=== PATIENT | female | born 1940 | race Caucasian/White ===

== ENCOUNTER → 2017-09-01 09:57 | Outpatient (CLI) | payer MEDICARE, SELFPAY ==
[2017-09-01 12:36] LABS: ALB/GLOB Ratio 1.1 RATIO (0.9-2.4); AST(SGOT) 17 U/L (15-37); Alanine Aminotransfer ALT/SGPT 24 U/L (13-56); Alkaline Phosphatase 119 U/L (45-117); Anion Gap 8 (5-15); BUN 15 mg/dL (7-18); Calcium,Total 9.3 mg/dL (8.5-10.1); Chloride 108 mmol/L (98-107); Cholesterol 199 mg/dL (200); Creatinine, Serum 0.65 mg/dL (0.55-1.02); EST Glomerular Filtration Rate 93 mL/min (>60); Est Glom Filt Rate - Afr Amer 113 mL/min (>60); Globulin 3.6 g/dL (2.2-4.2); Glucose 89 mg/dL (74-106); High Density Lipoprotein 81 mg/dL; Potassium 3.7 mmol/L (3.5-5.1); Protein, Total 7.6 g/dL (6.4-8.2); Sodium Level 143 mmol/L (136-145); Triglycerides 130 mg/dL; Very Low Density Lipoprotein 26 mg/dL (5-40)
== END ==
PROVIDERS: Family Provider Family Medicine; PCP Family Medicine; Visit Provider Family Medicine
DX: E78.5 Hyperlipidemia, unspecified (principal)
CPT/HCPCS: 36415; 80053; 80061

== ENCOUNTER → 2018-03-30 13:03 | Outpatient (CLI) | payer MEDICARE, SELFPAY ==
--- NOTE | 2018-03-30 13:09 | RAD_ITS ---
STUDY: X-RAY - RIGHT KNEE REASON FOR EXAM: Female, 77 years old. Right knee pain. TECHNIQUE: 4 view(s) of the knee. COMPARISON: 4 views of the right knee January 28, 2017. FINDINGS: Mild periarticular spurring of the medial femoral condyle there is medial articular spurring of the tibial plateau as well as spurring of the tibial spines. Normal visualized proximal fibula. There is mild paratracheal or spurring at the base of the patella, as well as cortical spurring at the patellar insertion of the quadriceps tendon. There is no demonstrated destructive osseous lesion or acute fracture. There is degenerative arthrosis of the medial femorotibial compartment with moderately severe joint space narrowing. There is Degenerative narrowing of the lateral femorotibial compartment, as well as chondrocalcinosis. Normal patellofemoral articulation. There is a soft tissue prominence in the suprapatellar region suggesting a small volume joint effusion. The soft tissue structures are unremarkable. RAD/Knee 4 or More Views IMPRESSION: Tricompartmental degenerative arthrosis of the knee, including chondrocalcinosis of the lateral femorotibial compartment and small joint effusion. These are findings that can be associated with deposition arthritides, such as calcium pyrophosphate deposition disease (CPPD). Narrowing in the medial femorotibial compartment has worsened, and the small joint effusion is new. Electronically Signed: Quintin Wilson MD at 15:43 EST , Service support ,
--- OUTSIDE RECORDS SUMMARY | 2018-05-23 20:40 | XMS RPT_ITS ---
:1940 Author Organization [facility] Care Team Providers Name Role Phone Damian Cleveland Attending Unavailable Megha, Damian Primary Care Unavailable Orin Luciano Attending Unavailable Megha, Damian Referring Unavailable Damian Cleveland Primary Care Unavailable Nadege, Olvin Attending Unavailable Cleveland, Damian Referring Unavailable Nadege, Olvin Attending Unavailable Nadege, Olvin Referring Unavailable Megha, Damian Primary Care Unavailable PROBLEMS PROBLEMS DATE TYPE CONDITION / CODE ATTENDING STATUS SOURCE 03/30/2018 Unknown M25.561 - Pain in Olvin Light Active [place] right knee / Community M25.561(ICD-10) Hospital Repository 01/01/2018 Unknown M17.11 - [place], Active [place] Unilateral [facility] osteoarthritis, Repository right knee / M17.11(ICD-10) PROCEDURES PROCEDURES No Procedure Records FoundRESULTS RESULTS ORTHOPEDIC VISIT Observed: 03/31/2018 Status: F Source: N[facility]DA REPORT 12:44 PM [facility] REPOSITORY [facility] Orthopaedics AND Sports Medicine [address] [place] [address] OFFICE VISIT Date of Service: 03/30/18 MR#: [id number] Acct: [id number] Name: KI DOW Rep #: [id number] : 1940 Provider: CABRERA Light Age/Sex: 77/F Location: [facility] [place].[facility] Status: Signed Intake Intake Visit Reasons: RIGHT KNEE Is patient in pain?: Yes Allergies No Known Allergies Allergy (Verified 03/30/18 13:04) Medications simvastatin 20 mg tablet 20 mg PO QHS 01/01/18 [History Confirmed 01/01/18] HPI RIGHT KNEE: Details: KI DOW is a 77 year old F here today for continued right knee pain. Patient notes that she has pain over her medial knee. She had an injection on 01/01/18 which was helpful for her evening pain. She denies any frequent clicking or popping. Patient has increased pain with ambulation. Her last xrays were 01/2017. She denies any recent PT or bracing. Denies numbness, tingling or other associated symptoms. ROS Const Reports system reviewed and no additional complaints, except as docu Eyes Reports system reviewed and no additional complaints, except as docu ENT Reports system reviewed and no additional complaints, except as docu Card Reports system reviewed and no additional complaints, except as docu Resp Reports system reviewed and no additional complaints, except as docu GI Reports system reviewed and no additional complaints, except as docu Reports system reviewed and no additional complaints, except as docu Musc Reports joint pain Skin/Breast Reports system reviewed and no additional complaints, except as docu Neuro Yes system reviewed and no additional complaints, except as docu Psych Reports system reviewed and no additional complaints, except as docu Endo Reports system reviewed and no additional complaints, except as docu Ortho Exam Right Knee Swelling: No Knee ROM: Yes ROM-Extension -20 to 0, Yes ROM-Flexion 0-140 Examination: Yes Med jt line tenderness, Yes Pain with flexion, Yes Crepitus, No Pain with extention, No TTP inf pole patella Quad Atrophy: No Stability: NML: Valgus 30, NML: Varus 30 Popliteal Adenopathy: No Patella Grind: Yes Office Procedures Ortho Injections Injections Yes Knee Right Details: Obtained consent for injection. Under sterile conditions, injected the patients right knee with a 10cc cocktail of 8cc bupivacaine and 2cc kenalog. The patient tolerated the injection well without any noted complication. Patient should call our office if redness develops, pain worsens or if they have any concerns. Office Meds Kenalog Performing Provider: CABRERA Stock Administered by: CABRERA Stock on 03/30/18 14:44 Dose Route Admin Location Lot Number Expiration DateNDC Manager Of Regulatory Affairs 80 mg Intra-Articularright knee [id number] 03/28/19 9935-7317-19 [facility] Assessment AND Plan Problems 1. Arthritis of knee, right M17.11 Plan Obtained Xrays of patient's right knee. Personally reviewed Xrays. There is no obvious fracture, dislocation, or lucency noted. There is evident joint space narrowing on weightbearing films indicating medial compartment arthritis. See chart for further details. Today in office we discussed anatomy and physiology of the knee as well as pathophysiology of arthritis. We discussed she deftly has evidence of arthritis and likely has some degenerative tearing of the meniscus. We discussed treatment options today which include doing nothing, physical therapy, injection, or further imaging for possible arthroplasty. Patient really would like to proceed with trying to get gel injections approved through her insurance. We discussed that we do not participate in a by and fill program which is what her insurance will do. At this time she would like to go ahead with a another steroid injection for the nighttime pain and she is going to try and find an office to do By and bill to get her gel injections approved. Patient is to ice the knee tonight and can take an anti-inflammatory as needed. She is to notify us of any redness, increasing swelling or pain, or any other symptoms in the meantime. Orders Orders: Medications Discontinued: Kenalog (triamcinolone acetonide) Disco80 mg (2 mL) Intra- Articular ONCE 2 mL 0RFM17.11 ntinued Reason: Office Medication has bee NS n Documented as given Plan Detail Follow Up 3 Months Coding Level of Care Code Off vis,est,level 3 Diagnoses Arthritis of knee, right M17.11 Additional Codes director of supply chain.knee ([id number]) 03/31/18 1244 <Electronically signed by Olvin REES> Date Olvin REES Cosigner Signature: Date (if applicable) CC: KNEE 4 OR MORE Observed: 03/30/2018 Status: F Source: [place] VIEWS 1:05 PM [facility] REPOSITORY [facility] Imaging Services [address] [place] [address] Knee 4 or More Views MR#: [id number] Acct: [id number] Name: KI DOW Rep #: [id number] : 1940 F 77 From: Chadd Wilson MD PCP: Damian Cleveland MD Status: REG CLI Study: Knee 4 or More Views Date of Exam: 03/30/18 Exam# [id number] Ordering Dr: Olvin Light STUDY: X-RAY - RIGHT KNEE REASON FOR EXAM: Female, 77 years old. Right knee pain. TECHNIQUE: 4 view(s) of the knee. COMPARISON: 4 views of the right knee January 28, 2017. FINDINGS: Mild periarticular spurring of the medial femoral condyle there is medial articular spurring of the tibial plateau as well as spurring of the tibial spines. Normal visualized proximal fibula. There is mild paratracheal or spurring at the base of the patella, as well as cortical spurring at the patellar insertion of the quadriceps tendon. There is no demonstrated destructive osseous lesion or acute fracture. There is degenerative arthrosis of the medial femorotibial compartment with moderately severe joint space narrowing. There is Degenerative narrowing of the lateral femorotibial compartment, as well as chondrocalcinosis. Normal patellofemoral articulation. There is a soft tissue prominence in the suprapatellar region suggesting a small volume joint effusion. The soft tissue structures are unremarkable. RAD/Knee 4 or More Views IMPRESSION: Tricompartmental degenerative arthrosis of the knee, including chondrocalcinosis of the lateral femorotibial compartment and small joint effusion. These are findings that can be associated with deposition arthritides, such as calcium pyrophosphate deposition disease (CPPD). Narrowing in the medial femorotibial compartment has worsened, and the small joint effusion is new. Electronically Signed: Quintin Wilson MD at 15:43 EST , Service support , CC: CABRERA Light; Damian Cleveland MD Destination Specialist: Signed ORTHOPEDIC VISIT Observed: 01/12/2018 Status: F Source: NILDA REPORT 11:20 AM [facility] REPOSITORY [facility] Orthopaedics AND Sports Medicine [address] [place] [address] OFFICE VISIT Date of Service: 01/01/18 MR#: [id number] Acct: [id number] Name: KI DOW Rep #: [id number] : 1940 Provider: Orin Luciano DO Age/Sex: 77/F Location[place] [facility] [place] [place]: Signed Intake Intake Visit Reasons: RIGHT KNEE Is patient in pain?: Yes Allergies No Known Allergies Allergy (Unverified 01/01/18 14:57) Medications simvastatin 20 mg tablet 20 mg PO QHS 01/01/18 [History Confirmed 01/01/18] HPI RIGHT KNEE: Details: KI DOW is a 77 year old F here today for right knee pain. Patient complains of pain over her anterior knee. She has increased pain in the evening and her knee pain wakes her up throughout the night. Patient denies any popping or clicking. She has some swelling of her right knee. She had an injection was 01/28/17 which was helpful for about 10 months. Patient notes that she modifies her actvities and does not kneel on her knee. ROS Const Reports system reviewed and no additional complaints, except as docu Eyes Reports system reviewed and no additional complaints, except as docu ENT Reports system reviewed and no additional complaints, except as docu Card Reports system reviewed and no additional complaints, except as docu Resp Reports system reviewed and no additional complaints, except as docu GI Reports system reviewed and no additional complaints, except as docu Reports system reviewed and no additional complaints, except as docu Musc Reports joint pain, Reports joint swelling Skin/Breast Reports system reviewed and no additional complaints, except as docu Neuro Yes system reviewed and no additional complaints, except as docu Psych Reports system reviewed and no additional complaints, except as docu Endo Reports system reviewed and no additional complaints, except as docu Ortho Exam Right Knee Skin/Wound: Yes CDI Contralateral Normal: Yes Swelling: No Knee ROM: Yes ROM-Extension -20 to 0, Yes ROM-Flexion 0-140 Examination: Yes Med jt line tenderness, Yes Pain with flexion Office Procedures Ortho Injections Injections Yes Knee Right Details: Obtained consent for injection. Under sterile conditions, aspirated 7cc and injected the patients right knee with a 10cc cocktail of 8cc bupivacaine and 2cc kenalog. The patient tolerated the injection well without any noted complication. Patient should call our office if redness develops, pain worsens or if they have any concerns. Office Meds Kenalog Performing Provider: Orin Luciano DO Administered by: Orin Luciano DO on 01/01/18 15:20 Dose Route Admin Location Lot Number Expiration DateNDC Manager Of Regulatory Affairs 80 mg Intra-Articularright knee [id number] 03/28/19 7801-9184-10 [employer] Assessment AND Plan 1. Osteoarthritis of right knee, unspecified osteoarthritis type M17.11 Plan Explained that as long as the steroid injections are helpful we can continue them every 3-4 months. Follow up in [] or sooner if pain, swelling, numbness or associated symptoms, or concerns develop. All questions answered. Patient in agreement of plan. Orders Orders: Medications Discontinued: Kenalog (triamcinolone acetonide) Disco80 mg (8 mL) Intra- Articular ONCE NS Perry Vivas ntinued Reason: Office Medication has bee n Documented as given Coding Level of Care Code No Charge Diagnoses Osteoarthritis of right knee, unspecified osteoarthritis type M17.11 Osteoarthritis type: unspecified Additional Codes director of supply chain.knee ([id number]) 01/12/18 1120 <Electronically signed by Orin Luciano DO> Date Orin Luciano DO Cosigner Signature: Date (if applicable) CC: COMPREHENSIVE METABOLIC Collected: 09/01/2017 Status: F Source: NILDA [facility] 9:59 AM [facility] REPOSITORY TYPE CODE TESTS RESULT OUT OF RANGE REFERENCE UNITS LAB L501.0100 74-106 mg/dL Normal GLU 89 Result Comment: Please note revised GLUCOSE reference range effective 2017. LAB L501.1000 7-18 mg/dL Normal BUN 15 LAB L501.1100 0.55-1.02 mg/dL Normal CREAT,SERUM 0.65 Result Comment: The validity of the calculated GFR AND GFRAA in patients over 70 years has not been determined. Clinical correlation is essential. LAB L501.1110 >60 mL/min Normal EST GFR 93 Result Comment: Non- GFR Calc LAB L501.1115 >60 mL/min Normal EST GFR - AA 113 Result Comment: GFR Calc LAB L501.1300 10-20 RATIO High BUN/CRE 23.0 LAB L501.1500 6.4-8.2 g/dL T Normal PROT 7.6 LAB L501.1800 3.2-5.0 g/dL Normal ALB 4.0 LAB L501.1950 2.2-4.2 g/dL Normal GLOB 3.6 LAB L501.2000 0.9-2.4 RATIO Normal A/G 1.1 LAB L501.2200 8.5-10.1 mg/dL CA Normal 9.3 LAB L501.4100 15-37 U/L Normal AST 17 LAB L501.4305 45-117 U/L High ALK P 119 LAB L501.4405 13-56 U/L Normal ALT 24 LAB L501.4600 0.20-1.00 mg/dL T Normal BILI 0.30 LAB L501.5300 136-145 mmol/L NA Normal 143 LAB L501.5600 3.5-5.1 mmol/L K Normal 3.7 LAB L501.5900 98-107 mmol/L High CL 108 LAB L501.6100 21.0-32.0 mmol/L Normal CO2 27.0 LAB L501.6200 5-15 Normal GAP 8 Performed By: #### L500.4050, L500.4100 #### [facility] [address], [address] LIPID PROFILE Collected: 09/01/2017 Status: F Source: NILDA 9:59 AM [facility] REPOSITORY TYPE CODE TESTS RESULT OUT OF RANGE REFERENCE UNITS LAB L501.4900 200 mg/dL Normal CHOL 199 Result Comment: <200 mg/dL Desirable 200-240 mg/dL Borderline >240 mg/dL High Risk LAB L501.5000 mg/dL Normal TRIG 130 Result Comment: The drugs N-Acetylcysteine and Metamizole may falsely depress this assay. Serum Triglycerides Reference Interval Normal <150 mg/dL Borderline high 150 - 199 mg/dL High 200 - 499 mg/dL Very High > or = 500 mg/dL LAB L501.6400 mg/dL Normal HDL 81 Result Comment: The drugs N-Acetylcysteine and Metamizole may falsely depress this assay. Reference Range HDL <40 mg/dL Low HDL Cholesterol HDL >or= 60 mg/dL High HDL Cholesterol LAB L501.6500 0-130 mg/dL Normal LDL 92 LAB L501.6600 5-40 mg/dL Normal VLDL 26 Performed By: #### L500.4050, L500.4100 #### [facility] [address] [place], [address] ALLERGIES ALLERGIES DATE TYPE / CODE NAME / CODE REACTION SEVERITY SOURCE 03/30/2018 Drug No Known Unknown [facility] Allergy/4160 Allergies/F00 [facility] 13805(SNOMED [id number](RXNOR Repository CT) M) ENCOUNTERS ENCOUNTERS ADMIT/DISCHARGE ACCOUNT ADMITTING ENCOUNTER LOCATION SOURCE NUMBER CLASS 03/30/2018 [id number] Ambulatory [place] 6 [facility] ing:HPRAD Repository 03/30/2018/ [id number] Ambulatory BMSBuilding:B [place] 8 5 [facility] Repository 01/01/2018/ [id number] Ambulatory BMSBuilding:B [place] 8 1 [facility] Repository 09/01/2017 [id number] Ambulatory [place] 3 [facility] ing:MFPLAB Repository PAYERS PAYERS ENCOUNTER GUARANTOR PAYER SUBSCRIBER SOURCE 03/30/2018 KI SMALL Primary KI LOPEZ [place], Insurance:HERNANDEZ DYEB: [facility] [address]Ipu: MCRPolicy Number: [id number] Hospital [id number] Repository (HP) Date:[id number] [address], [place] [address]XC: 03/30/2018 Secondary NOT GIVENUNK [place] Insurance:SELF PAY [facility] [place] Number: Effective Repository Date:2018-03-30 03/30/2018 KI DOW402 Primary KI A [place] JESSICA [address], Insurance:AETNA BUTLERDOB: [facility] [place] [address]Lza: MCRPolicy Number: [id number] Hospital [id number] Repository (HP) Date:6868-22-23BZ [id number] [place] [address]UY: 03/30/2018 Secondary NOT GIVENUNK [place] Insurance:SELF PAY [facility] Number: Effective Repository Date:2018-03-30 01/01/2018 KI DOW402 Primary KI A [place] JESSICA [place], Insurance:AETNA BUTLERDOB: [facility] [place] [address]Wnz: MCRPolicy Number: [id number] Hospital [id number] Repository (HP) Date:[id number] [address], [place] [address]RS: 01/01/2018 Secondary NOT GIVENUNK [place] Insurance:SELF PAY [facility] Number: Effective Repository Date:2018-01-01 09/01/2017 Ki Dow402 Primary Ki A [place] [address], Insurance:AETNA ButlerDOB: [facility] [place] [address]Ajl: MCRPolicy Number: [id number] Hospital [id number] Repository -4 (HP) Date:0806-27-07ZT [address] [address]AD: 09/01/2017 Secondary NOT GIVENUNK [place] Insurance[facility]LF [facility]Y [facility] Effective Repository Date:2017-09-01
== END ==
PROVIDERS: Family Provider Family Medicine; PCP Family Medicine; Referring Provider Physician Assistant; Visit Provider Physician Assistant
DX: M25.561 Pain in right knee (principal)
CPT/HCPCS: 73564

== ENCOUNTER → 2018-08-28 09:20 | Outpatient (CLI) | payer MEDICARE, SELFPAY ==
[2018-08-28 13:09] LABS: Anion Gap 6 (5-15); BUN 16 mg/dL (7-18); Calcium,Total 9.3 mg/dL (8.5-10.1); Chloride 106 mmol/L (98-107); Cholesterol 242 mg/dL (200); Creatinine, Serum 0.67 mg/dL (0.55-1.02); EST Glomerular Filtration Rate 91 mL/min (>60); Est Glom Filt Rate - Afr Amer 110 mL/min (>60); Glucose 90 mg/dL (74-106); High Density Lipoprotein 84 mg/dL; Potassium 4.3 mmol/L (3.5-5.1); Sodium Level 138 mmol/L (136-145); Triglycerides 127 mg/dL; Very Low Density Lipoprotein 25 mg/dL (5-40)
== END ==
PROVIDERS: Family Provider Family Medicine; PCP Family Medicine; Referring Provider Family Medicine; Visit Provider Family Medicine
DX: E78.5 Hyperlipidemia, unspecified (principal); G40.409 Other generalized epilepsy and epileptic syndromes, not intractable, without status epilepticus
CPT/HCPCS: 36415; 80048; 80061; 80185

== ENCOUNTER → 2019-03-01 09:57 | Outpatient (CLI) | payer MEDICARE, SELFPAY ==
[2019-03-01 12:32] LABS: Anion Gap 6 (5-15); BUN 17 mg/dL (7-18); BUN/Creat Ratio 24.6 RATIO (10-20); Calcium,Total 9.7 mg/dL (8.5-10.1); Chloride 107 mmol/L (98-107); Cholesterol 248 mg/dL (200); Creatinine, Serum 0.69 mg/dL (0.55-1.02); EST Glomerular Filtration Rate 87 mL/min (>60); Est Glom Filt Rate - Afr Amer 105 mL/min (>60); Glucose 92 mg/dL (74-106); High Density Lipoprotein 79 mg/dL; Potassium 4.1 mmol/L (3.5-5.1); Sodium Level 141 mmol/L (136-145); Triglycerides 150 mg/dL; Very Low Density Lipoprotein 30 mg/dL (5-40)
== END ==
PROVIDERS: Family Provider Family Medicine; PCP Family Medicine; Visit Provider Family Medicine
DX: E78.5 Hyperlipidemia, unspecified (principal); I10 Essential (primary) hypertension
CPT/HCPCS: 36415; 80048; 80061

== ENCOUNTER → 2019-04-07 06:35 | Outpatient (CLI) | payer MEDICARE, SELFPAY ==
--- NOTE | 2019-04-07 09:45 | STRESSREP ---
Stress Test Report Date: 04-07-19 Procedure: Exercise tolerance test/imaging study Indications: Chest pain Consent: Per the patient Procedure: The patient exercised on a Wesley protocol for 6 minutes completing Stage II achieving a peak heart rate of 129 bpm (91 % predicted maximal heart rate) with a peak blood pressure 152/60 mmHg and a peak MET capacity of 7 METs. The baseline ECG demonstrated sinus bradycardia. The peak exercise ECG demonstrated somatic/motion artifact with no obvious ECG changes. There were no cardiac dysrhythmias pretest, during exercise, or recovery. The functional capacity was considered average. There was no complaint of chest discomfort during exercise or recovery. The examination was discontinued secondary to dyspnea. Impression: 1. Technically adequate (percent predicted maximal heart rate greater than 85%) exercise tolerance test 2. Peak exercise ECG demonstrated somatic/motion artifact with no obvious ECG changes 3. There were no cardiac dysrhythmias pretest, during exercise, or recovery 4. Nuclear images pending Myocardial perfusion imaging study: Technique: The patient was injected with 11.0 mCi of technetium 99m Cardiolite and subsequently rest SPECT Cardiolite nuclear imaging was obtained in the horizontal long, vertical long, and short axis views. The patient exercised on a Wesley protocol for 6 minutes completing Stage II achieving a peak heart rate of 129 bpm (91 % predicted maximal heart rate) with a peak blood pressure 152/60 mmHg and a peak MET capacity of 7 METs. The patient was injected with 33.0 mCi of technetium 99m Cardiolite and subsequently stress SPECT Cardiolite nuclear imaging was obtained in the horizontal long, vertical long, and short axis views. A gated Cardiolite study at peak stress was obtained. Interpretation: Rest and stress SPECT Cardiolite nuclear imaging status post realignment, normalization, and attenuation correction, demonstrates the appearance of relative uniform tracer uptake and myocardial perfusion appearing within normal limits. There is end systolic thickening and brightening. The gated Cardiolite study demonstrates myocardial thickening and inward wall motion. The reported LVEF is 80 %. Impression: 1. Rest and stress SPECT Cardiolite nuclear imaging demonstrate relative uniform tracer uptake and myocardial perfusion appearing within normal limits. 2. The gated Cardiolite study reports an LVEF of 80 %. This note was generated with [employer] software. It may contain incorrect words, spelling, and punctuation that were not noted in checking the note before signing.
== END ==
PROVIDERS: Family Provider Family Medicine; PCP Family Medicine; Referring Provider Family Medicine; Visit Provider Family Medicine
DX: R07.9 Chest pain, unspecified (principal)
CPT/HCPCS: 78452; 93017; A9500; A4216

== ENCOUNTER → 2019-05-11 13:30 | Outpatient (CLI) | payer MEDICARE, SELFPAY ==
--- NOTE | 2019-05-11 13:31 | RAD_ITS ---
STUDY: X-RAY - LEFT KNEE REASON FOR EXAM: Female, 79 years old. Increasing knee pain for 3 months. TECHNIQUE: 4 view(s) of the knee. COMPARISON: March 19, 2011 FINDINGS: Stable generalized osteopenia. Normal visualized distal femur. Normal visualized proximal tibia and fibula. Normal proximal tibiofibular articulation. Progression of arthrosis of the medial, lateral and patellofemoral compartments consistent with prior study. Moderate osteoarthrosis of the medial compartment and mild arthrosis of the lateral and patellofemoral compartments. Chondrocalcinosis. Small suprapatellar joint effusion. RAD/Knee 4 or More Views IMPRESSION: Osteopenia with progression of tricompartmental arthrosis, small suprapatellar joint effusion and chondrocalcinosis. No acute osseous abnormality. Electronically Signed: Dejan Lyles MD at 11:11 EST , Service support ,
[2019-05-11 15:49] LABS: Pathologist Comment May follow
[2019-05-11 16:17] LABS: Synovial Fld Mononuclear WBC % 86.9 %; Synovial Fld Polynuclear WBC # 0.028 10^3/uL; Synovial Fld Polynuclear WBC % 13.1 %
[2019-05-11 16:27] LABS: RBC /Synovial Fluid 0.003 10^6/uL (0)
[2019-05-11 16:57] LABS: AUTO B FLUID DILUENT BKGD CT WBC <0.1 RBC <0.01 (W<.1,R<.01); Color / Synovial Fluid Yellow (Pale Yellow); Source- Body Fluid SYNOVIAL
[2019-05-11 16:58] LABS: Appearance /Synovial Fluid Clear (CLEAR); Source / Synovial Fluid LEFT KNEE; Viscosity / Synovial Fluid Sl. Viscous (HIGH)
[2019-05-11 17:18] LABS: Lymph 47 %; Monocyte /Synovial Fluid 41 %; Neutrophil 12 % (0-25)
[2019-05-11 17:19] LABS: Body Fluid QC Type(s) BF1Q,BF2Q
[2019-05-12 10:33] LABS: Pathologist Review Reviewed
[2019-05-14 15:17] LABS: PROTEIN, SYNOVIAL FLUID 5.5 g/dL (.)
== END ==
PROVIDERS: Family Provider Family Medicine; PCP Family Medicine; Referring Provider Orthopaedic Surgery; Visit Provider Orthopaedic Surgery
DX: M25.562 Pain in left knee (principal); M11.262 Other chondrocalcinosis, left knee
CPT/HCPCS: 73564; 84157; 87070; 87075; 87205; 89050; 89051; 89060

== ENCOUNTER → 2019-08-25 10:43 | Outpatient (CLI) | payer MEDICARE, SELFPAY ==
--- NOTE | 2019-08-25 10:47 | RAD_ITS ---
STUDY: X-RAY - ABDOMEN/PELVIS REASON FOR EXAM: Female, 79 years old. LLQ pain/soreness TECHNIQUE: AP supine and upright views of the abdomen and pelvis. COMPARISON: None. FINDINGS: Normal visualized lung bases. There is an abundance of fecal material throughout the colon. There is no demonstrated free abdominal air. The visualized liver, spleen and kidneys are grossly normal in size and morphology. Normal soft tissue structures. There are diffuse degenerative changes of the visualized lumbar spine. Mild levoscoliosis. RAD/Abd Inc Decub and/or Erect IMPRESSION: Large amount of fecal material is seen throughout the colon. Electronically Signed: Martínez Crockett, at 13:30 EDT , Service support ,
== END ==
PROVIDERS: PCP Family Medicine; Referring Provider Family Medicine; Visit Provider Family Medicine
DX: R10.9 Unspecified abdominal pain (principal)
CPT/HCPCS: 74019

== ENCOUNTER → 2019-11-01 11:06 | Outpatient (CLI) | payer MEDICARE, SELFPAY ==
--- NOTE | 2019-11-01 11:06 | RAD_ITS ---
STUDY: X-RAY - RIGHT KNEE REASON FOR EXAM: Female, 79 years old. Knee pain. TECHNIQUE: 4 view(s) of the knee. COMPARISON: None. FINDINGS: Normal visualized distal femur. Normal visualized proximal tibia and fibula. Normal proximal tibiofibular articulation. There is no acute fracture, dislocation or destructive osseous pathology. There is moderate degenerative arthrosis of the medial femorotibial compartment with moderate joint space narrowing. There is moderate degenerative arthrosis of the lateral femorotibial compartment with moderate joint space narrowing. Calcifications within the lateral meniscus. There is moderate degenerative arthrosis of the patellofemoral articulation. There is a soft tissue prominence in the suprapatellar region suggesting a small volume joint effusion. The soft tissue structures are unremarkable. RAD/Knee 4 or More Views IMPRESSION: Degenerative arthrosis. Electronically Signed: Abdulaziz Young DO at 17:23 EDT Tel [phone], Service support ,
== END ==
PROVIDERS: PCP Family Medicine; Referring Provider Physician Assistant; Visit Provider Physician Assistant
DX: M25.561 Pain in right knee (principal)
CPT/HCPCS: 73564

== ENCOUNTER → 2019-12-06 10:51 | Outpatient (CLI) | payer MEDICARE, SELFPAY ==
[2019-12-06 13:03] LABS: ALB/GLOB Ratio 1.1 RATIO (0.9-2.4); AST(SGOT) 19 U/L (15-37); Alanine Aminotransfer ALT/SGPT 26 U/L (13-56); Albumin, Serum 3.9 g/dL (3.2-5.0); Alkaline Phosphatase 129 U/L (45-117); Anion Gap 7 (5-15); BUN 17 mg/dL (7-18); BUN/Creat Ratio 24.7 RATIO (10-20); Calcium,Total 9.3 mg/dL (8.5-10.1); Chloride 106 mmol/L (98-107); Cholesterol 220 mg/dL (200); Creatinine, Serum 0.69 mg/dL (0.55-1.02); EST Glomerular Filtration Rate 87 mL/min (>60); Est Glom Filt Rate - Afr Amer 105 mL/min (>60); Globulin 3.7 g/dL (2.2-4.2); Glucose 94 mg/dL (74-106); High Density Lipoprotein 77 mg/dL; Potassium 4.1 mmol/L (3.5-5.1); Protein, Total 7.6 g/dL (6.4-8.2); Sodium Level 140 mmol/L (136-145); Triglycerides 116 mg/dL; Very Low Density Lipoprotein 23 mg/dL (5-40)
[2019-12-06 13:09] LABS: Vitamin D,25 Hydroxy 37.9 ng/mL
== END ==
PROVIDERS: PCP Family Medicine; Visit Provider Family Medicine
DX: E78.5 Hyperlipidemia, unspecified (principal); E55.9 Vitamin D deficiency, unspecified
CPT/HCPCS: 36415; 80053; 80061; 82306

== ENCOUNTER → 2020-01-04 09:47 | Outpatient (CLI) | payer MEDICARE, SELFPAY ==
--- NOTE | 2020-01-04 09:52 | BD_ITS ---
STUDY: DUAL ENERGY X-RAY ABSORPTIOMETRY / DXA REASON FOR EXAM: Female, 79 years old. CONDUCTOR YARD -- HX OF HRT -- TAKES ANTI-SEIZURE MED -- HX OF TAKING BONE BUILDING MED IN PAST -- DOES MODERATE AMOUNT OF EXERCISE -- FAMILY HX OF OSTEO- MOTHER -- BRENDAN OF 2 INCHES TECHNIQUE: Bone Mineral Density (BMD) measurements of lumbar spine and bilateral hips were obtained. COMPARISON: Comparison is made with prior study dated 12/21/2013. FINDINGS: Lumbar Spine (L1-L4): g/cm2 (0.939) / T-score (-1.9) / Z-score (0.0) Findings are suggestive of osteopenia with a moderate fracture risk. Left Femur Total: g/cm2 (0.722) / T-score (-2.3) / Z-score (-0.2) Left Femoral Neck: g/cm2 (0.721) / T-score (-2.3) / Z-score (-0.1) Right Femur Total: g/cm2 (0.731) / T-score (-2.2) / Z-score (-0.2) Right Femoral Neck: g/cm2 (0.643) / T-score (-2.8) / Z-score (-0.7) The T-Scores on the most recent prior examination were: Lumbar Spine (L1-L4): There has been improvement of bone density since the previous examination. Left Femur Total: which represents a worsening of 3.7%. Right Femur Total: which represents a worsening of 6.6%. BD/Dexa Bone Density Study IMPRESSION: The patient is considered osteoporotic as outlined below according to World Gregorio Organization (WHO) criteria with a high fracture risk. There has been worsening of bone density since the previous examination. Reference Information: The T-score is the number of standard deviations above or below the standard which is normal for young adults at their peak bone mineral density. The World Health Organization (WHO) interprets the T-scores as follows: Above -1 Normal bone density Between -1 and -2.5 Osteopenia Equal to / or below -2.5 Osteoporosis As a practical clinical guideline, osteopenia may be graded as follows: Mild -1 through -1.5 Moderate -1.6 through -2.0 Severe -2.1 through -2.4 The Z-score is the number of standard deviations above or below age-matched controls. A Z-score of less than -1.5 would be considered abnormal. References: 1. NIH Osteoporosis and Related Bone Diseases http://www.osteo.org 2. International Society for Clinical Densitometry http://www.iscd.org 3. National Osteoporosis Foundation http://www.nof.org Electronically Signed: Martínez Crockett, at 11:18 EDT , Service support ,
== END ==
PROVIDERS: PCP Family Medicine; Referring Provider Family Medicine; Visit Provider Family Medicine
DX: Z78.0 Asymptomatic menopausal state (principal)
CPT/HCPCS: 77080

== ENCOUNTER 2020-05-26 14:09 | Outpatient (RCR) | payer MEDICARE, SELFPAY | END 2020-05-26 23:59 | LOC: IMMUN 14:09 | PROVIDERS: PCP Family Medicine; Referring Provider Family Medicine; Visit Provider Family Medicine | DX: Z23 Encounter for immunization (principal) | CPT/HCPCS: 0011A; 0012A; 91301 ==

== ENCOUNTER → 2021-04-10 09:07 | Outpatient (CLI) | payer MEDICARE, SELFPAY ==
[2021-04-10 10:34] LABS: ALB/GLOB Ratio 1.1 RATIO (0.9-2.4); AST(SGOT) 20 U/L (15-37); Alanine Aminotransfer ALT/SGPT 29 U/L (13-56); Albumin, Serum 3.9 g/dL (3.2-5.0); Alkaline Phosphatase 76 U/L (45-117); Anion Gap 4 (5-15); BUN 18 mg/dL (7-18); Calcium,Total 9.4 mg/dL (8.5-10.1); Chloride 110 mmol/L (98-107); Cholesterol 205 mg/dL (200); Creatinine, Serum 0.58 mg/dL (0.55-1.02); EST Glomerular Filtration Rate 106 mL/min (>60); Est Glom Filt Rate - Afr Amer 128 mL/min (>60); Globulin 3.6 g/dL (2.2-4.2); Glucose 110 mg/dL (74-106); High Density Lipoprotein 82 mg/dL; Potassium 3.9 mmol/L (3.5-5.1); Protein, Total 7.5 g/dL (6.4-8.2); Sodium Level 140 mmol/L (136-145); Triglycerides 104 mg/dL; Very Low Density Lipoprotein 21 mg/dL (5-40)
== END ==
PROVIDERS: PCP Family Medicine; Visit Provider Family Medicine
DX: E78.5 Hyperlipidemia, unspecified (principal); Z79.899 Other long term (current) drug therapy
CPT/HCPCS: 36415; 80053; 80061; 80185

== ENCOUNTER → 2021-08-21 | Outpatient (CLI) | payer MEDICARE, SELFPAY ==
[2021-08-21 10:31] LABS: ALB/GLOB Ratio 1.1 RATIO (0.9-2.4); AST(SGOT) 14 U/L (15-37); Alanine Aminotransfer ALT/SGPT 26 U/L (13-56); Albumin, Serum 3.8 g/dL (3.2-5.0); Alkaline Phosphatase 71 U/L (45-117); Anion Gap 2 (5-15); BUN 18 mg/dL (7-18); BUN/Creat Ratio 27.1 RATIO (10-20); Calcium,Total 9.4 mg/dL (8.5-10.1); Chloride 111 mmol/L (98-107); Creatinine, Serum 0.66 mg/dL (0.55-1.02); EST Glomerular Filtration Rate 91 mL/min (>60); Est Glom Filt Rate - Afr Amer 110 mL/min (>60); Globulin 3.5 g/dL (2.2-4.2); Glucose 99 mg/dL (74-106); Protein, Total 7.3 g/dL (6.4-8.2); Sodium Level 141 mmol/L (136-145)
[2021-08-21 11:28] LABS: Vitamin D,25 Hydroxy 38.9 ng/mL
== END | disposition home or self-care (01) ==
LOC: MFPLAB 09:19
PROVIDERS: PCP Family Medicine; Referring Provider Family Medicine; Visit Provider Family Medicine
DX: E55.9 Vitamin D deficiency, unspecified (principal); E78.5 Hyperlipidemia, unspecified
CPT/HCPCS: 36415; 80053; 82306

== ENCOUNTER → 2022-01-09 | Outpatient (CLI) | payer MEDICARE, SELFPAY ==
[2022-01-09 12:50] LABS: ALB/GLOB Ratio 1.1 RATIO (0.9-2.4); AST(SGOT) 17 U/L (15-37); Alanine Aminotransfer ALT/SGPT 26 U/L (13-56); Alkaline Phosphatase 70 U/L (45-117); Anion Gap 9 (5-15); BUN 18 mg/dL (7-18); BUN/Creat Ratio 26.5 RATIO (10-20); Calcium,Total 9.7 mg/dL (8.5-10.1); Chloride 107 mmol/L (98-107); Creatinine, Serum 0.68 mg/dL (0.55-1.02); EST Glomerular Filtration Rate 88 mL/min (>60); Est Glom Filt Rate - Afr Amer 106 mL/min (>60); Globulin 3.6 g/dL (2.2-4.2); Glucose 91 mg/dL (74-106); Potassium 4.1 mmol/L (3.5-5.1); Protein, Total 7.6 g/dL (6.4-8.2); Sodium Level 141 mmol/L (136-145)
== END | disposition home or self-care (01) ==
LOC: MFPLAB 10:18
PROVIDERS: PCP Family Medicine; Referring Provider Family Medicine; Visit Provider Family Medicine
DX: E78.5 Hyperlipidemia, unspecified (principal)
CPT/HCPCS: 36415; 80053

== ENCOUNTER → 2023-06-24 | Outpatient (CLI) | payer MEDICARE, SELFPAY ==
--- OUTSIDE RECORDS SUMMARY | 2023-06-24 09:00 | XMS RPT_ITS | CCD ---
Author Name Unknown Address [address] [facility] [address] [place] [address] Organization [facility] Care Team Providers Care Laborer General Name Role Phone Orin Luciano Unavailable Reyes, Stacy N Unavailable Reyes, Stacy N Unavailable Reyes, Stacy N Unavailable Reyes, Stacy N Unavailable Reyes, Stacy N Unavailable Reyes, Stacy N Unavailable Reyes, Stacy N Unavailable Reyes, Stacy N Unavailable Orin Luciano Unavailable Problems Active Problems Problem Classification Problem Date Documented Date Episodic/Chronic Osteoarthritis (20 sources) Osteoarthritis of knee; Translations: [Osteoarthritis of knee, unspecified] Onset: 01-28-2017 06-29-2013 Chronic Other nervous system disorders (12 sources) Cervical radiculopathy; Translations: [Brachial neuritis or radiculitis NOS] Onset: 07-08-2013 07-09-2013 Chronic Past or Other Problems Problem Classification Problem Date Documented Da te Episodic/Chronic Other non-traumatic joint disorders (16 sources) Knee joint effusion; Translations: [Knee pain] 06-29-2013 Episodic Other non-traumatic joint disorders (8 sources) Knee pain; Translations: [Pain in unspecified knee] 06-29-2013 Episodic Spondylosis; intervertebral disc disorders; other back problems (20 sources) Spinal stenosis in cervical region; Translations: [Neck pain] Onset: 07-08-2013 07-21-2013 Episodic Results Test Name Value Interpretation Reference Range Facil ity Vital Signs Date Time Vital Sign Value Performing Clinician Elias nicole 07-08-2013 11:04-0400 Body weight 73.48 kg Orin Luciano [facility] Work Phone: 07-08-2013 11:04-0400 BP Diastolic 76 mm[Hg] [facility] Work Phone: 07-08-2013 11:04-0400 BP Systolic 122 mm[Hg] Stacy [facility] Work Phone: 07-08-2013 11:04-0400 Weight 73[address] [facility] Work Phone: 06-28-2013 13:25-0500 Height 162.[address] [facility] Work Phone: Procedures Date Procedure Procedure Detail Performing Clinician Start: 09-05-2016 End: 09-05-2016 Documentation of current medications Orin Luciano Plan of Treatment Date Care Activity Detail Author Start: 01-28-2017 End: 01-28-2017 *BFRW - Body Fluid RBC, WBC & DIFF *BFRW - Body Fluid RBC, WBC & DIFF [facility] Work Phone: Start: 01-28-2017 End: 01-28-2017 Bacteria identified in Body fluid by Culture *CUBF- Culture, Body Fluid [facility] Work Phone: Start: 01-28-2017 End: 01-28-2017 Crystals [type] in Body fluid by Light microscopy *MIRIAM - Crystals, Body Fluid [facility] Work Phone: Start: 01-28-2017 End: 01-28-2017 Glucose [Mass/volume] in Body fluid *GLUBF - Glucose, Body Fluid [facility] Work Phone: Start: 01-28-2017 End: 01-28-2017 Protein in fluid *PROBF - Protein, Body Fluid [facility] Work Phone: Start: 01-28-2017 End: 01-28-2017 Radiologic exam knee complete 4/more views X-Ray, Knee [facility] Work Phone: Start: 01-28-2017 End: 01-28-2017 Appointment Appointment [facility] Work Phone: Start: 09-05-2016 End: 09-05-2016 Appointment Appointment [facility] Work Phone: [facility] Work Phone: Progress note 06-30-2020 Note Date & Type Note Facility 06-30-2020 Note HNO ID: [id number] Author: Sheila Walker Service: ? Author Type: Nurse Practitioner Type: Progress Notes Filed: 06/30/2020 2:14 PM Note Text: Ki Dow is a 80 year old female who presents for problem visit Vaginal itching. HPI: History of LS, treated with clobetasol but has not used it for years except for using clobetasol prescribed by Dr Singleton 6 months ago - used it for just a couple of days but then was unsure if it was the correct medication so she stopped using it. Has also tried Desitin with no relief. Has had vulvar burning and itching intermittently for past 6 months. Thinks she is scratching during the night and sees scratch nicole when she looks with mirror. No vaginal discharge. PAST MEDICAL HISTORY Diagnosis Date - Disorder of bone and cartilage, unspecified - Diverticulosis of colon (without mention of hemorrhage) - Family history of malignant neoplasm of gastrointestinal tract family history of colon cancer (brother) - GERD (gastroesophageal reflux disease) - Irritable bowel syndrome - Other congenital anomaly of spine - Personal history of colonic polyps - Pure hypercholesterolemia - Seizures (HCC) 1985 last one PAST SURGICAL HISTORY Procedure Laterality Date - COLONOSCOP W/ OR W/O [facility] SPEC 07/2000 Colonoscopy - COLONOSCOP W/ OR W/O [facility] SPEC 06/16/07 - EGD W/O OR W/BRUSH/WASH 06/09/2018 EGD - PAST SURGICAL HISTORY OF removal of cyst on ovary in college FAMILY HISTORY Problem Relation Age of Onset - other (colon polyps) Brother - COPD Father Social History Tobacco Use - Smoking status: Never Smoker - Smokeless tobacco: Never Used - Tobacco comment: social smoker quit age 59 Substance Use Topics - Alcohol use: Yes Comment: socially - Drug use: No Current Outpatient Medications Medication Sig - simvastatin (ZOCOR) 20 mg tablet Take 40 mg by mouth daily at bedtime. - multivit,thx,calcium,iron,mins (MULTIVITAMIN AND MINERAL ORAL) Take 1 tablet by mouth once daily. - ergocalciferol, vitamin D2, (VITAMIN D2 ORAL) Take by mouth. - omeprazole (PRILOSEC) 20 mg capsule Take 2 capsules by mouth once daily. - phenytoin ER (DILANTIN) 100 mg ER capsule Take 200 mg by mouth daily at bedtime. - clobetasol (TEMOVATE) 0.05 % ointment Apply 1 application to affected area twice daily. TO AFFECTED AREA. - famotidine (PEPCID) 40 mg tablet once daily. - LORazepam (ATIVAN) 0.5 mg tab Take by mouth at bedtime as needed (Pt takes 1/2 tablet as needed.). - atorvastatin calcium(LIPITOR 10 MG TAB) Take one(1) tablet daily. No current facility-administered medications for this visit. Allergies As of Date: 06/30/2020 (No Known Allergies) Fully Assessed 06/30/2020 REVIEW OF SYSTEMS Abdomen: No bloating, early satiety, indigestion, or increased flatulence. No abdominal pain, nausea, vomiting, diarrhea, or constipation. Bladder: No dysuria, gross hematuria, urinary frequency, urinary urgency, or incontinence. Allergies and current medication updated:Yes EXAM: BP 132/60 Wt 124 lb (56.2kg) GENERAL: pleasant, female in no apparent distress CHEST: Normal inspiratory effort PELVIC: normal Bartholin's glands, urethra, Torreon's glands, no cervical lesions, physiologic discharge present. Skin of vulva depigmented and pale white. Multiple ecchymotic scratch nicole. Mild agglutination of labia minora and clitoral jenkins. BIMANUAL: uterus normal size, shape and consistency, no adnexal masses and non-tender NEURO: alert and oriented x3,exam grossly non-focal ASSESSMENT/PLAN: 1. Lichen sclerosus et atrophicus - ICD9: 701.0, ICD10: L90.0 (primary diagnosis) - exacerbation of LS - CLOBETASOL 0.05 % TOPICAL OINTMENT taper. 2. Vagina itching - ICD9: 698.1, ICD10: N89.8 - BACT/SANCHO VAG GRAM STAIN Follow-up in 8-12 weeks. Sheila Walker APRN.BRENDA Medical Decision Making: Problems: Moderate: 1+ chronic illnesses with change Data: Unique test(s) ordered: 1 Risk: Moderate: Drug management Medical Decision Making Level: 4 - Moderate [facility] Clinical Note 05-26-2020 Note Date & Type Note Facility 05-26-2020 Note Patient Outreach (CO OCC3) KI DOW ([id number]) 1940 F Date Time Provider Department 05/26/20 NATALIIA WOLFF During your visit today, we recorded the following information about you: Allergies As of Date: 05/26/2020 (No Known Allergies) Date Reviewed: 06/18/2018 Reviewed by: Ty Ruffin - Fully Assessed Order(s):SARS-COVID VACCINE 1ST DOSE APPT [[id number]] Order #: [id number] FUTURE Prescriptions as of 05/26/2020 Sig: OMEPRAZOLE 20 MG CAPSULE,NASRIN* Take 2 capsules by mouth once* PHENYTOIN SODIUM EXTENDED 100* Take 200 mg by mouth daily at* FAMOTIDINE 40 MG TABLET once daily. LORAZEPAM 0.5 MG TABLET Take by mouth at bedtime as * CLOBETASOL 0.05 % TOPICAL OIN* Apply 1 application to affect* * LIPITOR 10 MG TABLET Take one(1) tablet daily. Problem List As Of Date 05/26/2020 Noted Resolved Lichen sclerosus [L90.0] 07/03/2016 Encounter Status:Closed by Hypecal, PRODUSER on 05/29/20 [facility] Summary Purpose Family History No Family History Records Found Advance Directives No Advanced Directives Records Found Additional Source Comments INFORMATION SOURCE (unrecogn ized section and content) FOR RECORDS PERTAINING TO PATIENTS WHO ARE OR HAVE BEEN ENROLLED IN A CHEMICAL DEPENDENCY/SUBSTANCEABUSE PROGRAM, SOME INFORMATION MAY BE OMITTED. This clinical summary was aggregated from multiple sources. Caution should be exercised in using it in the provision of clinical care. This summary normalizes information from multiple sources, and as a consequence, information in this document may materially change the coding, format and clinical context of patient data. In addition, data may be omitted in some cases. CLINICAL DECISIONS SHOULD BE BASED ON THE PRIMARY CLINICAL RECORDS. [facility] [employer] [facility]. provides no warranty or guarantee of the accuracy or completeness of information in this document.
[2023-06-24 11:39] LABS: ALB/GLOB Ratio 1.1 RATIO (0.9-2.4); AST(SGOT) 20 U/L (15-37); Alanine Aminotransfer ALT/SGPT 31 U/L (13-56); Alkaline Phosphatase 91 U/L (45-117); Anion Gap 5 (5-15); BUN 20 mg/dL (7-18); BUN/Creat Ratio 28.2 RATIO (10-20); Calcium,Total 9.4 mg/dL (8.5-10.1); Chloride 110 mmol/L (98-107); Creatinine, Serum 0.71 mg/dL (0.55-1.02); EST Glomerular Filtration Rate 84 mL/min (>60); Est Glom Filt Rate - Afr Amer 101 mL/min (>60); Globulin 3.6 g/dL (2.2-4.2); Glucose 107 mg/dL (74-106); Potassium 3.9 mmol/L (3.5-5.1); Protein, Total 7.6 g/dL (6.4-8.2); Sodium Level 140 mmol/L (136-145)
== END | disposition home or self-care (01) ==
LOC: MFPLAB 08:38
PROVIDERS: PCP Family Medicine; Visit Provider Family Medicine
DX: E78.5 Hyperlipidemia, unspecified (principal)
CPT/HCPCS: 36415; 80053

== ENCOUNTER → 2023-08-15 | Outpatient (CLI) | payer MEDICARE, SELFPAY ==
--- NOTE | 2023-08-15 10:17 | ECHOD_ITS ---
Reason For Study: MVP Procedure This was a 2D Doppler, Color Flow transthoracic echocardiogram. Exam performed in department. Left Ventricle Normal LV size. Moderate eccentric left ventricular hypertrophy. Left ventricular systolic function is normal. The estimated ejection fraction is 62 %. Stage 1 diastolic dysfunction. No regional wall motion abnormalities noted. Right Ventricle Normal RV size. Normal systolic function. Atria Normal left atrium. Normal right atrium. Mitral Valve Normal mitral valve. Tricuspid Valve Normal tricuspid valve. Aortic Valve Normal aortic valve. Mild (1+) eccentric aortic valve insufficiency. Pulmonic Valve Normal pulmonic valve. Great Vessels Normal aortic root. The pulmonary artery is normal size. Normal inferior vena cava. Pericardium/Pleural No pericardial effusion. MMode/2D Measurements & Calculations LVIDd: 3.1 cm IVSd: 1.6 cm Ao root diam: 2.6 cm LVIDs: 2.5 cm LVPWd: 1.3 cm RVDd: 3.1 cm FS: 21.1 % LAV(MOD-bp): 49.6 ml LVAd ap4: 25.9 cm2 SV(MOD-sp4): 43.4 ml LAV(MOD-bp) Indexed: 31.8 ml/m2 LVLd ap4: 7.8 cm LAV(MOD-sp2): 47.9 ml EDV(MOD-sp4): 70.5 ml LAV(MOD-sp4): 49.3 ml EDV(sp4-el): 73.3 ml LVAs ap4: 15.0 cm2 LVLs ap4: 7.0 cm ESV(MOD-sp4): 27.2 ml ESV(sp4-el): 27.2 ml EF(MOD-sp4): 61.5 % EF(sp4-el): 62.9 % SV(sp4-el): 46.2 ml LA A4 area: 17.8 cm2 LA dimension(2D): 3.6 cm RA A4 area: 14.1 cm2 TAPSE: 2.1 cm Time Measurements MV dec time: 0.17 sec Doppler Measurements & Calculations MV E max balta: 64.6 cm/sec Lat Peak E' Balta: 10.3 cm/sec Med Peak E' Balta: 6.7 cm/sec MV A max balta: 99.0 cm/sec E/E' lat: 6.3 E/E' med: 9.6 MV E/A: 0.65 MV V2 max: 109.0 cm/sec Ao V2 max: 177.5 cm/sec MV max P.8 mmHg MV dec slope: 369.6 cm/sec2 Ao max P.6 mmHg MV V2 mean: 65.4 cm/sec Ao V2 mean: 111.8 cm/sec MV mean P.0 mmHg Ao mean P.9 mmHg MV V2 VTI: 31.7 cm Ao V2 VTI: 39.6 cm AV (velocity ratio): 0.76 AI max balta: 479.8 cm/sec LV V1 max: 122.6 cm/sec PA V2 max: 89.9 cm/sec AI max P.1 mmHg LV V1 max P.0 mmHg PA V2 mean: 64.4 cm/sec LV V1 mean P.1 mmHg AI dec slope: 338.5 cm/sec2 LV V1 mean: 81.0 cm/sec AI P1/2t: 415.2 msec LV V1 VTI: 30.1 cm ECHO/Echo Complete Interpretation Summary Normal LV size. Moderate eccentric left ventricular hypertrophy. Left ventricular systolic function is normal. The estimated ejection fraction is 62 %. Stage 1 diastolic dysfunction. Mild (1+) eccentric aortic valve insufficiency. Ordering Physician: Jaren Fortune Referring Physician: Jaren Fortune Performed By: Zuri Jacobson RCS
== END | disposition home or self-care (01) ==
LOC: CVS 10:15
PROVIDERS: PCP Family Medicine; Referring Provider Internal Medicine Cardiovascular Disease; Visit Provider Internal Medicine Cardiovascular Disease
DX: I34.1 Nonrheumatic mitral (valve) prolapse (principal)
CPT/HCPCS: 93306; 93788

== ENCOUNTER → 2024-01-09 | Outpatient (CLI) | payer MEDICARE, SELFPAY ==
[2024-01-09 16:05] LABS: ALB/GLOB Ratio 1.1 RATIO (0.9-2.4); AST(SGOT) 19 U/L (15-37); Alanine Aminotransfer ALT/SGPT 27 U/L (13-56); Albumin, Serum 3.8 g/dL (3.2-5.0); Alkaline Phosphatase 98 U/L (45-117); Anion Gap 5 (5-15); BUN 22 mg/dL (7-18); BUN/Creat Ratio 31.4 RATIO (10-20); Calcium,Total 9.7 mg/dL (8.5-10.1); Chloride 107 mmol/L (98-107); Cholesterol 208 mg/dL (200); EST Glomerular Filtration Rate 85 mL/min (>60); Est Glom Filt Rate - Afr Amer 102 mL/min (>60); Globulin 3.6 g/dL (2.2-4.2); Glucose 96 mg/dL (74-106); High Density Lipoprotein 86 mg/dL; Potassium 4.1 mmol/L (3.5-5.1); Protein, Total 7.4 g/dL (6.4-8.2); Sodium Level 139 mmol/L (136-145); Triglycerides 114 mg/dL; Very Low Density Lipoprotein 23 mg/dL (5-40)
== END | disposition home or self-care (01) ==
LOC: MFPLAB 11:21
PROVIDERS: PCP Family Medicine; Visit Provider Family Medicine
DX: I10 Essential (primary) hypertension (principal)
CPT/HCPCS: 36415; 80053; 80061

== ENCOUNTER → 2024-01-23 | Outpatient (CLI) | payer MEDICARE, SELFPAY ==
--- NOTE | 2024-01-23 14:47 | BI_ITS ---
MAMMOGRAPHY - BILATERAL SCREENING REASON FOR EXAM: Female, 83 years old. Routine annual screening examination. PERTINENT HISTORY: Non-contributory. TECHNIQUE: Digital bilateral breast ra (3D mammographic acquisition) in the CC and MLO projections. 2-D mediolateral oblique (MLO) and craniocaudad (CC) views of both breasts were obtained. CAD: Full Field Digital Mammography with Computer Added Detection was performed. COMPARISON: Comparison is made with prior outside examination of July 03, 2016 and November 21, 2014. FINDINGS: Breast Composition: The breasts are heterogeneously dense, which may obscure small masses. There are no dominant masses or suspicious calcifications. No other significant abnormalities are identified. There has been no significant change since the prior study. BI/SCRN MAMM (CAD)W/RA BILAT IMPRESSION: Stable bilateral screening mammogram. Yearly follow-up mammogram recommended. (A) ASSESSMENT CATEGORY: BIRADS Category 1: Negative. A letter regarding these results will be sent to the patient by the facility within 30 days. Approximately 10% of breast cancers are not detected by mammography. A normal mammogram should not delay biopsy of a clinically suspicious abnormality. [id number] Electronically Signed: Martínez Crockett MD at 14:05 EDT ,
== END | disposition home or self-care (01) ==
LOC: OPBI 14:45
PROVIDERS: PCP Family Medicine; Referring Provider Family Medicine; Visit Provider Family Medicine
DX: Z12.31 Encounter for screening mammogram for malignant neoplasm of breast (principal)
CPT/HCPCS: 77063; 77067

== ENCOUNTER → 2024-02-18 | Outpatient (CLI) | payer MEDICARE, SELFPAY ==
--- NOTE | 2024-02-18 13:52 | BD_ITS ---
STUDY: DUAL ENERGY X-RAY ABSORPTIOMETRY / DXA REASON FOR EXAM: Female, 83 years old. M810 TECHNIQUE: Bone Mineral Density (BMD) measurements of lumbar spine and bilateral hips were obtained. COMPARISON: Comparison is made with prior study January 04, 2020. FINDINGS: Lumbar Spine (L1-L4): g/cm2 (0.928) / T-score (-0.8) / Z-score (2.0) Findings are suggestive of normal bone density with a low fracture risk. Left Femur Total: g/cm2 (0.646) / T-score (-2.4) / Z-score (-0.1) Left Femoral Neck: g/cm2 (0.490) / T-score (-3.2) / Z-score (-0.7) Right Femur Total: g/cm2 (0.653) / T-score (-2.4) / Z-score (0.0) Right Femoral Neck: g/cm2 (0.513) / T-score (-3.0) / Z-score (-0.5) The T-Scores on the most recent prior examination were: Lumbar Spine (L1-L4): There has been improvement of bone density since the previous examination. Left Femur Total: which represents a worsening of 2.7%. Right Femur Total: which represents a worsening of 3%. BD/Dexa Bone Density Study IMPRESSION: The patient is considered osteoporotic as outlined below according to World Gregorio Organization (WHO) criteria with a high fracture risk. There has been worsening of bone density since the previous examination. Reference Information: The T-score is the number of standard deviations above or below the standard which is normal for young adults at their peak bone mineral density. The World Health Organization (WHO) interprets the T-scores as follows: Above -1 Normal bone density Between -1 and -2.5 Osteopenia Equal to / or below -2.5 Osteoporosis As a practical clinical guideline, osteopenia may be graded as follows: Mild -1 through -1.5 Moderate -1.6 through -2.0 Severe -2.1 through -2.4 The Z-score is the number of standard deviations above or below age-matched controls. A Z-score of less than -1.5 would be considered abnormal. References: 1. NIH Osteoporosis and Related Bone Diseases www osteo.org 2. International Society for Clinical Densitometry www iscd.org 3. National Osteoporosis Foundation www nof.org Electronically Signed: Martínez Crockett MD at 9:38 EDT ,
== END | disposition home or self-care (01) ==
LOC: OPBD 13:50
PROVIDERS: PCP Family Medicine; Referring Provider Family Medicine; Visit Provider Family Medicine
DX: M81.0 Age-related osteoporosis without current pathological fracture (principal)
CPT/HCPCS: 77080

== ENCOUNTER → 2024-05-31 | Outpatient (CLI) | payer MEDICARE, SELFPAY ==
[2024-05-31 12:37] LABS: Anion Gap 11 (5-15); BUN 31 mg/dL (7-18); BUN/Creat Ratio 23.5 RATIO (10-20); Calcium,Total 10.2 mg/dL (8.5-10.1); Chloride 106 mmol/L (98-107); Creatinine, Serum 1.32 mg/dL (0.55-1.02); EST Glomerular Filtration Rate 41 mL/min (>60); Est Glom Filt Rate - Afr Amer 49 mL/min (>60); Glucose 112 mg/dL (74-106); Sodium Level 136 mmol/L (136-145)
== END | disposition home or self-care (01) ==
LOC: MFPLAB 09:03
PROVIDERS: PCP Family Medicine; Referring Provider Family Medicine; Visit Provider Family Medicine
DX: I10 Essential (primary) hypertension (principal)
CPT/HCPCS: 36415; 80048

== ENCOUNTER → 2024-11-03 | Outpatient (CLI) | payer MEDICARE, SELFPAY ==
[2024-11-03 13:50] LABS: Anion Gap 11 (5-15); BUN 16 mg/dL (4-19); BUN/Creat Ratio 25.4 RATIO (10-20); Calcium,Total 9.8 mg/dL (7.6-11.0); Carbon Dioxide 22.9 mmol/L (21.0-32.0); Chloride 106 mmol/L (98-108); Cholesterol 208 mg/dL (<=200); Glucose 115 mg/dL (70-99); Low Density Lipoprotein Calc. 107 mg/dL; Potassium 4.2 mmol/L (3.3-5.1); Triglycerides 158 mg/dL; Very Low Density Lipoprotein 32 mg/dL (5-40); cholesterol:hdl ratio screen 3.01
== END | disposition home or self-care (01) ==
LOC: MFPLAB 11:02
PROVIDERS: PCP Family Medicine; Referring Provider Family Medicine; Visit Provider Family Medicine
DX: I10 Essential (primary) hypertension (principal)
CPT/HCPCS: 36415; 80048; 80061

== ENCOUNTER → 2025-03-04 | Outpatient (CLI) | payer MEDICARE, SELFPAY ==
--- NOTE | 2025-03-04 15:21 | RAD_ITS ---
PROCEDURE: KNEE 4 OR MORE VIEWS 03/04/2025 REASON FOR EXAM: PAIN TECHNIQUE: Procedure Code: RADKN Modality: DX Procedure: KNEE 4 OR MORE VIEWS Laterality: Left COMPARISON: None FINDINGS: Bones: No fracture Joints: Severe joint space narrowing, marginal spurring with [id number] at the medial compartment and patellofemoral compartment. Effusion: Small joint effusion. Soft tissues: Soft tissues are unremarkable. RAD/Knee 4 or More Views IMPRESSION: Severe osteoarthritis with [id number]. Reading Location: [id number]
--- NOTE | 2025-03-04 15:21 | RAD_ITS ---
PROCEDURE: KNEE 4 OR MORE VIEWS 03/04/2025 REASON FOR EXAM: PAIN TECHNIQUE: Procedure Code: RADKN Modality: DX Procedure: KNEE 4 OR MORE VIEWS Laterality: Right knee COMPARISON: None FINDINGS: Bones: No fracture is seen. Joints: Marked degree of joint space narrowing and osteoarthritis of the medial compartment of the knee joint as well as the patellofemoral joint. Calcification of the lateral meniscus in keeping with chondrocalcinosis. Effusion: Small joint effusion. Soft tissues: Unremarkable Other: RAD/Knee 4 or More Views IMPRESSION: Marked degree of osteoarthritis of the medial compartment of the knee joint as well as the patellofemoral joint. Small joint effusion. Reading Location: [id number]
== END | disposition home or self-care (01) ==
LOC: MTRAD 15:19
PROVIDERS: PCP Family Medicine; Referring Provider Family Medicine; Visit Provider Family Medicine
DX: M25.561 Pain in right knee (principal); M25.562 Pain in left knee
CPT/HCPCS: 73564